=== PATIENT | male | born 1980 | race African-American/Black ===

== ENCOUNTER 2024-03-23 07:05 | Emergency (ER) | payer MEDICAID, OTHER ==
[~2024-03-23] VITALS: Ht 177.8 cm; Wt 147.2 kg
[2024-03-23 07:49] VITALS: BP 156/92; PULSE 77; RESP 20; TEMP 98.4; O2SAT 99
[2024-03-23] MEDS ORDERED: BENZ200C64 PO (08:13)
[2024-03-23] MEDS ORDERED: AUG875T PO (08:13)
[2024-03-23] MEDS ORDERED: FLUT1SPR5 (08:14)
[2024-03-23] MEDS ORDERED: GUAI-41 PO (08:14)
== END 2024-03-23 08:19 | disposition home or self-care (01) ==
LOC: ER 07:05
DX: B34.9 Viral infection, unspecified (principal); J45.909 Unspecified asthma, uncomplicated; I10 Essential (primary) hypertension